=== PATIENT | female | born 1990 | race Caucasian/White ===

== ENCOUNTER 2017-12-13 11:00 | Emergency (ER) | payer OTHER, MEDICAID ==
--- NOTE | 2017-12-13 11:57 | C.PDOC ---
History Of Present Illness 27 year old female with history of asthma, presents to ED for evaluation after exposure to CO at work. Patient states she was in the office when the carbon monoxide alarm went off. She reports feeling lightheaded, prompting her ER visit. Patient denies any loss of consciousness. She has no other medical complaints. Time Seen by Provider: 12/13/17 11:35 Chief Complaint (Nursing): Chemical Exposure History Per: Patient History/Exam Limitations: no limitations Onset/Duration Of Symptoms: Other (prior to arrival) Past Medical History Reviewed: Historical Data, Nursing Documentation, Vital Signs Vital Signs: Last Vital Signs Temp 98.0 F 12/13/17 11:32 Pulse 68 12/13/17 12:52 Resp 18 12/13/17 12:52 BP 115/68 12/13/17 12:52 Pulse Ox 98 12/13/17 12:52 - Medical History PMH: Asthma, Gastritis Surgical History: No Surg Hx Family History: States: Unknown Family Hx - Social History Hx Alcohol Use: No Hx Substance Use: No - Immunization History Hx Tetanus Toxoid Vaccination: No Hx Influenza Vaccination: No Hx Pneumococcal Vaccination: No Review Of Systems Except As Marked, All Systems Reviewed And Found Negative. Cardiovascular: Positive for: Light Headedness Respiratory: Negative for: Shortness of Breath Neurological: Negative for: Other (loss of cosnciousness) Physical Exam - Physical Exam Appears: Non-toxic, No Acute Distress Skin: Normal Color, Warm, Dry Head: Atraumatic, Normacephalic Eye(s): bilateral: Normal Inspection, EOMI Neck: Supple Chest: Symmetrical Cardiovascular: Rhythm Regular Respiratory: Normal Breath Sounds, No Wheezing Extremity: Bilateral: Atraumatic, Normal ROM Neurological/Psych: Oriented x3, Normal Speech Gait: Steady ED Course And Treatment O2 Sat by Pulse Oximetry: 100 (RA) Pulse Ox Interpretation: Normal Medical Decision Making Medical Decision Making: Impression: CO exposure Plan: CO level on monitor was 8. Oxygen via non-rebreather was given for over half hour. Patient reports improvement of symptoms. Patient feels comfortable going home and will be discharged. Patient given follow up instructions. Instructed to return to ER if symptoms worsen or new symptoms arise. Disposition Counseled Patient/Family Regarding: Diagnosis, Need For Followup, Rx Given - Disposition Disposition: HOME/ ROUTINE Disposition Time: 12:29 Condition: IMPROVED Additional Instructions: You were evaluated and treated for CO exposure. Please allow rest and drink fluids and breathe in fresh air, avoid any smoke Follow up with your primary medical doctor or clinic in 2-5 days for further evaluation Return to the emergency department at any time if symptoms persist or worsen. Instructions: Carbon Monoxide Poisoning (DC) Forms: [employer] ([place]) - POA Present On Arrival: None - Clinical Impression Clinical Impression: Carbon monoxide exposure - PA / [employer]PERATOR / Resident Statement MD/DO has reviewed & agrees with the documentation as recorded. - Scribe Statement The provider has reviewed the documentation as recorded by the Scribe (Cristina Nuñez) Provider Attestation: All medical record entries made by the Scribe were at my direction and personally dictated by me. I have reviewed the chart and agree that the record accurately reflects my personal performance of the history, physical exam, medical decision making, and the department course for this patient. I have also personally directed, reviewed, and agree with the discharge instructions and disposition.
[2017-12-13 12:02] VITALS: TEMP 98
[2017-12-13 12:55] VITALS: BP 115/68; PULSE 68; RESP 18
[2017-12-13 13:33] VITALS: O2SAT 100
== END 2017-12-13 12:54 | disposition home or self-care (01) ==
LOC: C.ER 11:00
DX: Z77.098 Contact with and (suspected) exposure to other hazardous, chiefly nonmedicinal, chemicals (principal)